=== PATIENT | male | born 1935 | race African-American/Black ===

== ENCOUNTER 2021-02-25 08:45 | Outpatient (CLI) | payer MEDICARE, BC | END 2021-02-25 08:46 | disposition home or self-care (01) | LOC: CSHCP 08:45 | PROVIDERS: ATTEND Internal Medicine Critical Care Medicine | DX: J84.10 Pulmonary fibrosis, unspecified (principal); R94.2 Abnormal results of pulmonary function studies; R09.02 Hypoxemia | CPT/HCPCS: 94010; 94760 ==